=== PATIENT | female | born 2000 | race Caucasian/White ===

== ENCOUNTER 2020-03-23 15:29 | Emergency (ER) | payer MEDICAID ==
[~2020-03-23] VITALS: Ht 170.2 cm; Wt 82.0 kg
[2020-03-23 19:17] VITALS: BP 129/73
--- NOTE | 2020-03-23 19:32 | NUR ---
patient discharged from triage. vss. offers no complaints and verbalized understanding discharge instructions
== END 2020-03-23 19:33 | disposition home or self-care (01) ==
LOC: ED 19:25
DX: J06.9 Acute upper respiratory infection, unspecified (principal); Z20.828 Contact with and (suspected) exposure to other viral communicable diseases; R06.00 Dyspnea, unspecified; R07.89 Other chest pain; R51.9 Headache, unspecified; M79.10 Myalgia, unspecified site
CPT/HCPCS: 71045; 87635; 93005; 99285